=== PATIENT | male | born 1980 | race Caucasian/White ===

== ENCOUNTER 2021-11-07 14:10 | Emergency (ER) | payer MEDICAID, SELFPAY ==
--- NOTE | ~2021-11-07 | XR_ITS ---
EXAMINATION: XR HIP, RIGHT CLINICAL INFORMATION: Fall. Pain. COMPARISON: Right hip 03/18/2018, 01/27/2016 TECHNIQUE: Two views of the right hip. FINDINGS: No acute abnormality. There is no acute fracture or dislocation of pelvis or hips. Orthopedic plate and screw in place at the right pelvis with no evidence of hardware failure or loosening. Heterotopic ossification adjacent to the inferior margin of the orthopedic plate adjacent to the ischium similar prior study. There is moderate joint narrowing of both hip joints right greater than left. Bone spur the superior lateral acetabular rim of the right hip and small spur of the right femoral head superior laterally similar prior studies. XR/XR hip RT w PEL1V IMPRESSION: 1. No acute abnormality of the pelvis or hips. 2. 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 3. Degenerative joint disease of hips bilateral, right worse than left.
[2021-11-07 16:52] VITALS: PULSE 60; TEMP 36.1; O2SAT 98; BMI 31.8
--- NOTE | 2021-11-07 18:21 | ED.DENTAL ---
HPI - Dental/Oral General Chief complaint: Dental/Oral Stated complaint: JAW SWOLLEN Time Seen by Provider: 11/07/21 18:11 Source: patient Mode of arrival: ambulatory Limitations: no limitations History of Present Illness HPI Narrative: 41-year-old male presenting with increased dental pain. He was seen by his dentist at the [facility] last week for dental infection, he received ibuprofen antibiotics with brief improvement however a few days ago his pain worsened. Today he reports increased jaw swelling on the right side with difficulty eating and pain that is out of control. He really has been taking ibuprofen with no improvement. He is able to open and close his jaw. He has had no fever or chills. MD Complaint: tooth pain Location: Tooth # (Thirty-one and 30) Onset (ago): day(s) (7) Duration: constant Severity: severe Severity scale (1-10): 10 Relieving factors: NSAIDs Exacerbating factors: chewing Context: history of dental caries, trauma (mechanism) and poor dental care Treatment prior to arrival: none Related Data Previous Rx's Medication Instructions Recorded clindamycin HCl 300 mg capsule 300 mg PO Q6H 7 Days #28 cap 11/07/21 ibuprofen 800 mg tablet 800 mg PO Q8H PRN #14 tab 11/07/21 tramadol 50 mg tablet 50 mg PO Q8H PRN #10 tab 11/07/21 Allergies Allergy/AdvReac Type Severity Reaction Status Date / Time No Known Allergies Allergy Verified 11/07/21 17:59 [No Known Allergies*] Review of Systems Review of Systems: Constitutional: No Fever, No Chills ENT/Mouth: No sore throat, No Rhinorrhea, No Swallowing Difficulty, +dental pain, +ear pain Cardiovascular: No Chest Pain, No SOB Gastrointestinal: No Nausea, No Vomiting Musculoskeletal: + joint pain, No Myalgias Skin: No Skin Lesions, No rash Neuro: No Weakness, No Numbness, No Dizziness, + Headache Psych: No Anxiety/Panic, No Depression Heme/Lymph: + Lymphadenopathy PMFSH Social History Social History Advance Directives: No Advance Directives Information Provided: Yes Physical Exam Vital Signs: Vital Signs: Last Vital Signs Temp 97.0 F 11/07/21 16:52 Pulse 60 11/07/21 16:52 Pulse Ox 98 11/07/21 16:52 BMI result Body Mass Index 31.8 Appearance: Alert. Oriented X3. No acute distress. HEENT: Right lower mandibular swelling noted externally. Right lower molars number 30 and 31 with significant decay. Associated gingival swelling and tenderness, no fluctuance. No trismus. Bilateral TMs are normal in appearance. CVS: Normal heart rate and rhythm. Pulses normal. Respiratory: No respiratory distress. Skin: Skin warm and dry. Normal skin color. Normal skin turgor. No rashes. Extremities: Atraumatic, normal range of motion, normal inspection Neuro: Oriented X 3. No motor deficit. No sensory deficit. Course Course Course Narrative: 41-year-old male presenting with right lower dental pain and swelling. His exam is consistent with an abscess. At this time there is no area for us to drain in the emergency department today. He completed a course of amoxicillin recently. Will increase his antibiotic coverage to clindamycin, will also give a recurrent course of NSAIDs in add tramadol for severe pain. Patient has appointment with his dentist 16 of next week. He is stable for discharge home with antibiotic therapy and close outpatient follow-up with dentist. Stable for DC. Discharge Plan Discharge Clinical Impression: Dental abscess Patient Disposition: Home, Self-Care Instructions: Dental Abscess (ED) Additional Instructions: Start taking the prescribed antibiotic immediately. Continue taking ibuprofen around the clock, take with food. This will help with swelling and pain. Take the prescribed tramadol as needed for severe pain do not drive after taking this medication, can make you lethargic. Follow-up with your dentist as scheduled on November 13. If you develop new or worsening symptoms call 911 or come back to the ER for further evaluation. Prescriptions: New clindamycin HCl 300 mg capsule 300 mg PO Q6H 7 Days Qty: 28 RF: 0 ibuprofen 800 mg tablet 800 mg PO Q8H PRN (Reason: pain) Qty: 14 RF: 0 tramadol 50 mg tablet 50 mg PO Q8H PRN (Reason: pain) Qty: 10 RF: 0 Interventions: ED Discharge Assessment Last Done: 11/07/21 18:37 Discharge Date/Time: 11/07/21 18:39
== END 2021-11-07 18:39 | disposition home or self-care (01) ==
PROVIDERS: Emergency Provider Emergency Medicine Emergency Medical Services
DX: K04.7 Periapical abscess without sinus (principal); Z79.899 Other long term (current) drug therapy; M25.552 Pain in left hip; M25.551 Pain in right hip
CPT/HCPCS: 73502; 99283

== ENCOUNTER 2022-01-16 16:12 | Outpatient (REF) | payer MEDICAID, SELFPAY ==
--- NOTE | ~2022-01-16 | XR_ITS ---
EXAMINATION: XR HIP, RIGHT CLINICAL INFORMATION: Pain right hip COMPARISON: Radiographs pelvis and right hip 11/07/2021. TECHNIQUE: Two views of the right hip. FINDINGS: There are postsurgical changes again seen with compression plate and screws right hemipelvis. Hardware is intact. There is no destructive process or osteolysis. Heterotopic ossification again noted inferior lateral aspect ischial tuberosity and adjacent to the plate. Margins are corticated and overall size is approximately 2.2 x 2.4 cm. The right hip shows no fracture or dislocation or destructive process. There is mild spurring lateral hip joint. No interval hip narrowing or erosive change or subchondral sclerosis. XR/XR hip RT min 2V IMPRESSION: 1. Postsurgical changes right hemipelvis. Hardware intact. No destructive process. 2. Degenerative changes right hip, stable.
== END 2022-01-16 16:13 | disposition home or self-care (01) ==
LOC: HO.XRAY 16:12
PROVIDERS: Visit Provider Internal Medicine Geriatric Medicine
DX: M25.551 Pain in right hip (principal)
CPT/HCPCS: 73502

== ENCOUNTER 2022-01-26 15:56 | Emergency (ER) | payer MEDICAID, SELFPAY ==
[2022-01-26 16:06] VITALS: BP 128/67; PULSE 78; RESP 18; TEMP 36.9; O2SAT 100; BMI 20.1
--- NOTE | 2022-01-26 19:15 | PC.NURSE ---
PROVIDER INFORMING THIS RN THAT PATIENT WAS NOT IN THE ROOM WHEN THEY WENT TO EVALUATE. PATIENT LWT PRIOR TO THIS SHIFT ARRIVAL.
== END 2022-01-26 19:15 | disposition left against medical advice (07) ==
PROVIDERS: Emergency Provider Emergency Medicine; PCP Internal Medicine Geriatric Medicine
DX: B19.20 Unspecified viral hepatitis C without hepatic coma (principal); Z20.2 Contact with and (suspected) exposure to infections with a predominantly sexual mode of transmission
CPT/HCPCS: 99281; 99282

== ENCOUNTER 2023-11-04 11:55 | Emergency (ER) | payer MEDICAID, SELFPAY ==
--- NOTE | ~2023-11-04 | XR_ITS ---
EXAMINATION: XR HIP, RIGHT CLINICAL INFORMATION: Pain. History of surgical repair 20 years ago COMPARISON: Right hip 01/16/2022 TECHNIQUE: Two views of the right hip. AP view pelvis FINDINGS: There is a lateral pelvic plate and screws for an old healed fracture. There is no hardware loosening or failure seen. Heterotrophic ossification adjacent inferior margin of metallic plate/technetium is unchanged. Right hip joint space is maintained normal. No acute fracture, dislocation or lytic process seen. Mild degenerative spurring is seen along the lateral right hip joint. XR/XR hip RT w PEL1V IMPRESSION: 1. No acute fracture or dislocation seen right hip. 1. Degenerative spurring along the lateral right hip joint. 2. There is a lateral pelvic plate and screws for an old healed fracture. No hardware loosening or failure seen.
[2023-11-04 12:05] VITALS: BP 144/79; PULSE 84; RESP 16; TEMP 35.9; O2SAT 97; BMI 30.8
--- NOTE | 2023-11-04 12:06 | ED.LOWEXIN ---
HPI - Extremity Injury (Lower) General Chief Complaint: Extremity Problem Stated Complaint: Pain right leg Time Seen by Provider: 11/04/23 15:13 Source: patient and RN notes reviewed Mode of arrival: ambulatory Limitations: no limitations History of Present Illness HPI Narrative: This is a 43-year-old male presenting to the emergency department complaints of right hip pain x2 days. Patient denies any recent trauma or injury. He states that he had hip surgery 20 years ago in [place]. He had fractured his hip and had pins and screws placed. He denies any fevers or chills. No overlying warmth or erythema. States that his leg has given out on him twice. Denies any numbness or tingling. No back pain, urinary symptoms. No other complaints or concerns at this time. MD complaint: hip injury Onset (ago): day(s) Place: home Relieving factors: nothing Exacerbating factors: nothing Other symptoms: none Related Data Previous Rx's Medication Instructions Recorded clindamycin HCl 300 mg capsule 300 mg PO Q6H 7 days #28 caps 11/07/21 ibuprofen 800 mg tablet 800 mg PO Q8H PRN pain #14 tabs 11/07/21 tramadol 50 mg tablet 50 mg PO Q8H PRN pain #10 tabs 11/07/21 ibuprofen 600 mg tablet 600 mg PO Q6H PRN pain #30 tabs 11/04/23 lidocaine 5 % topical patch 1 patch topical DAILY #30 ea 11/04/23 (Lidoderm) Allergies Allergy/AdvReac Type Severity Reaction Status Date / Time No Known Allergies Allergy Verified 11/07/21 17:59 [No Known Allergies*] [facility] Social History Social History Advance Directives: No Advance Directives Information Provided: No Physical Exam Vital Signs: Vital Signs: Last Vital Signs Temp 96.7 F L 11/04/23 12:05 Pulse 84 11/04/23 12:05 Resp 16 11/04/23 12:05 BP 144/79 H 11/04/23 12:05 Pulse Ox 97 11/04/23 12:05 O2 Del Method Room Air 11/04/23 12:05 BMI result Body Mass Index 30.8 General: Awake, alert, and oriented X3. No acute distress. HEENT: Normal inspection CVS: Normal heart rate and rhythm. Pulses normal. Respiratory: No respiratory distress Skin: Warm, dry, no rashes noted to exposed skin. Normal skin color. Normal skin turgor. Extremities: Right hip with TTP over the lateral aspect, no overlying skin changes. Full ROM. Distal sensation and circulation intact. Strength 5/5. Ambulatory with steady gait. Neuro: Oriented X 3. No motor deficit. No sensory deficit. Course Course Course Narrative: This is an RME: Additional HPI, ROS, PE not included below will be deferred to primary provider. This is a 43-year-old male presenting to the emergency department with complaints of right hip pain. Patient states that he had hip surgery 20 years ago with 6 pens and a plate placed.States that his right leg gave out on him twice yesterday. No new trauma or injury. Plan: Right hip x-ray Medical Decision Making Medical Decision Making MDM Narrative: 43 y/o M presenting to the ER for evaluation of R hip pain x 2 days. Had hip surgery 20 years ago. His right leg has given out on him twice yesterday. No recent injury, falls, heavy lifting. No fevers or chills. Pt with normal vital signs and is ambulatory with steady gait. Right hip with TTP over the lateral aspect, no overlying skin changes. Xrays were obtained which revealed degenerative spurring over the lateral right hip joint. Lateral pelvvic plate and screws in place due to old healed fracture. Discussed findings with pt and given referall to ortho. Given return precautions. Pt understands and agrees with plan. Stable for d/c. Differential Diagnosis Differential Diagnoses: The differential diagnosis associated with the presentation includes R hip strain, sprain, contusion, fracture, hardware malalignment Independent Interpretation I performed an independent interpretation of an: Plain X-Ray Interpretation: CLINICAL INFORMATION: Pain. History of surgical repair 20 years ago COMPARISON: Right hip 01/16/2022 TECHNIQUE: Two views of the right hip. AP view pelvis FINDINGS: There is a lateral pelvic plate and screws for an old healed fracture. There is no hardware loosening or failure seen. Heterotrophic ossification adjacent inferior margin of metallic plate/technetium is unchanged. Right hip joint space is maintained normal. No acute fracture, dislocation or lytic process seen. Mild degenerative spurring is seen along the lateral right hip joint. XR/XR hip RT w PEL1V IMPRESSION: 1. No acute fracture or dislocation seen right hip. 1. Degenerative spurring along the lateral right hip joint. 2. There is a lateral pelvic plate and screws for an old healed fracture. No hardware loosening or failure seen. Dictated By: Antonio Salomon MD Discharge Plan Discharge Clinical Impression: Hip pain, right Patient Disposition: Home, Self-Care Instructions: Hip Pain (ED) Additional Instructions: Your seen in the emergency department due to right hip pain. Your x-rays show some degenerative changes, the hardware looks like it is in the right place. Please take prescribed ibuprofen as directed. May also use lidocaine patches as directed as needed Please follow-up with Orthopedics, call today to make an appointment. If any new or worsening symptoms occur including but not limited to fevers, chills, worsening pain, please return for re-evaluation. Prescriptions: New ibuprofen 600 mg tablet 600 mg PO Q6H PRN (Reason: pain) Qty: 30 0RF lidocaine [Lidoderm] 5 % adhesive patch,medicated 1 patch topical DAILY Qty: 30 0RF Rx Instructions: leave on most painful area for up to 12 hrs No Action clindamycin HCl 300 mg capsule 300 mg PO Q6H 7 Days Qty: 28 0RF ibuprofen 800 mg tablet 800 mg PO Q8H PRN (Reason: pain) Qty: 14 0RF tramadol 50 mg tablet 50 mg PO Q8H PRN (Reason: pain) Qty: 10 0RF Referrals: [facility] [place] [facility] [place] [facility] [Provider Group] Discharge Date/Time: 11/04/23 18:51
== END 2023-11-04 18:51 | disposition home or self-care (01) ==
PROVIDERS: Emergency Provider Emergency Medicine Emergency Medical Services
DX: M25.551 Pain in right hip (principal)
CPT/HCPCS: 73502; 99281; 99283